=== PATIENT | male | born 1945 | race Caucasian/White ===

== ENCOUNTER 2020-09-04 09:24 | Inpatient (IN) | payer OTHER ==
[~2020-09-04] VITALS: Ht 165.1 cm; Wt 81.6 kg
[~2020-09-04 09:24] MED LIST: CARdura 2MG TABLET PO; CEFDINIR300 MG PO; CIPRO500 MG PO; INTESTINEX680 MG PO; LOSARTAN POTASS50 MG PO; LOTRISONE CREAM45 GM TP; NAMENDA XR28 MG; NAMENDA XR28 MG PO; Neurontin PO; SEROQUEL25 MG PO; SEROQUEL50 MG; Seroquel PO; TAMS0.4C PO; ZOLOFT25 MG; ZYRTEC10 M3
[2020-09-05] MEDS ORDERED: GABAPENTIN100 M2 PO (08:30)
[2020-09-05] MEDS ORDERED: DOXAZOSIN MESYLA2 MG PO (08:31)
[2020-09-05] MEDS ORDERED: DAFLONEX-XL 11300 MG PO (08:34)
[2020-09-05] MEDS ORDERED: OXYBUTYNIN CHLO10 MG PO (08:34)
[2020-09-05] MEDS ORDERED: DONEPEZIL HCL10 MG PO (08:34)
[2020-09-05] MEDS ORDERED: ROSUVASTATIN CAL5 MG PO (08:35)
[2020-09-05] MEDS ORDERED: SERTRALINE HCL100 MG PO (08:35)
[2020-09-05] MEDS ORDERED: QUETIAPINE FUM200 MG PO (08:36)
[2020-09-16] MEDS ORDERED: CEFTRIAXONE2 GM IV (13:14)
[2020-09-16] MEDS ORDERED: LOSARTAN POTASS50 MG PO (13:15)
[2020-09-16] MEDS ORDERED: AMLODIPINE BESY10 MG PO (13:16)
[2020-09-16] MEDS ORDERED: HYDRALAZINE HCL25 MG PO (13:16)
[2020-09-16] MEDS ORDERED: INTESTINEX680 M1 PO (13:17)
== END 2020-09-16 17:10 | disposition home or self-care (01) | DRG 341 ==
LOC: ER 09:24 → ICU-2 16:14 → SURH 09-05 16:10
PROVIDERS: Surgery; ADMIT Internal Medicine; ATTEND Internal Medicine
PROC: 4A033R1 Measurement of Arterial Saturation, Peripheral, Percutaneous Approach (ICD-10-PCS; 2020-09-04)
PROC: BW28ZZZ Computerized Tomography (CT Scan) of Head (ICD-10-PCS; 2020-09-04)
PROC: B246ZZZ Ultrasonography of Right and Left Heart (ICD-10-PCS; 2020-09-04)
PROC: BW21ZZZ Computerized Tomography (CT Scan) of Abdomen and Pelvis (ICD-10-PCS; 2020-09-04)
PROC: BW24ZZZ Computerized Tomography (CT Scan) of Chest and Abdomen (ICD-10-PCS; 2020-09-04)
PROC: B50 Imaging, Veins, Plain Radiography (ICD-10-PCS; 2020-09-05)
PROC: 4A12X4Z Monitoring of Cardiac Electrical Activity, External Approach (ICD-10-PCS; 2020-09-05)
PROC: 0DTJ4ZZ Resection of Appendix, Percutaneous Endoscopic Approach (ICD-10-PCS; principal; 2020-09-05 14:00)
PROC: 02HV33Z Insertion of Infusion Device into Superior Vena Cava, Percutaneous Approach (ICD-10-PCS; 2020-09-13)
DX: K35.890 Other acute appendicitis without perforation or gangrene (principal); I26.99 Other pulmonary embolism without acute cor pulmonale; N39.0 Urinary tract infection, site not specified; N28.9 Disorder of kidney and ureter, unspecified; N41.8 Other inflammatory diseases of prostate; N45.3 Epididymo-orchitis; I10 Essential (primary) hypertension; R09.02 Hypoxemia; R33.8 Other retention of urine; T80.89XA Other complications following infusion, transfusion and therapeutic injection, initial encounter; T78.40XA Allergy, unspecified, initial encounter; Z95.0 Presence of cardiac pacemaker; F03.90 Unspecified dementia, unspecified severity, without behavioral disturbance, psychotic disturbance, mood disturbance, and anxiety; Z20.828 Contact with and (suspected) exposure to other viral communicable diseases; B96.29 Other Escherichia coli [E. coli] as the cause of diseases classified elsewhere